=== PATIENT | male | born 1990 | race Caucasian/White ===

== ENCOUNTER 2019-03-20 15:59 | Emergency (ER) | payer OTHER ==
--- NOTE | 2019-03-20 16:24 | ED Physician Documentation ---
History of Present Illness - Stated complaint Stated Complaint: MHE - Chief complaint Chief Complaint: MHE - Additonal information Additional information: This is a 28-year-old male with a history of depression who presents due to SI. He states that he found out today that he is going to be dismissed from the [employer], and this caused him to be more depressed than usual, He drank a bottle of wine and had increased thoughts of harming himself. He did not have a plan, but states that after the drinking he began to be worried that his SI might worsen. He has had some thoughts of suicidality in the past, but he has never had a plan or had an attempt. He does not have access to firearms. He is currently on Zoloft for his depression. He drank a bottle of wine around 5 hours ago. No other drug use. Review of Systems Constitutional: denies: Fever Cardiac: denies: Chest pain / pressure Respiratory: denies: Dyspnea GI: denies: Abdominal Pain : denies: Dysuria Neurologic: denies: Generalized weakness Psychiatric: reports: Depressed PD PAST MEDICAL HISTORY - Past Medical History Psych: Depression - Present Medications Home Medications: Ambulatory Orders Medication Instructions Recorded Confirmed Sertraline [Zoloft] 50 mg PO DAILY 03/20/19 03/20/19 - Allergies Allergies/Adverse Reactions: Allergies Allergy/AdvReac Type Severity Reaction Status Date / Time No Known Drug Allergies Allergy Verified 03/20/19 16:08 - Living Situation Living Situation: reports: Other (At [facility]) - Social History ETOH Use: Wine PD ED PE NORMAL - Vitals Vital signs reviewed: Yes - General General: Alert and oriented X 3, No acute distress - HEENT HEENT: PERRL - Neck Neck: Supple, no meningeal sign - Cardiac Cardiac: RRR, No murmur - Respiratory Respiratory: Clear bilaterally - Abdomen Abdomen: Normal bowel sounds, Soft, Non tender, Non distended - Derm Derm: Warm and dry - Extremities Extremities: No deformity - Neuro Neuro: Alert and oriented X 3, Normal speech - Psych Psych: Other (Mildly depressed affect, cooperative, linear thought process, no signs hallucinations or delusions.) Results - Vitals Vitals: Vital Signs - 24 hr 03/20/19 03/20/19 03/20/19 16:04 17:10 19:26 Temperature 36.8 C 37.1 C 36.9 C Heart Rate 108 H 93 115 H Respiratory 18 12 16 Rate Blood Pressure 158/95 H 150/93 H 149/72 H O2 Saturation 96 97 98 03/20/19 21:11 Temperature 37.1 C Heart Rate 103 H Respiratory 16 Rate Blood Pressure 136/84 H O2 Saturation 97 Oxygen O2 Source Room air - Labs Labs: Laboratory Tests 03/20/19 03/20/19 03/20/19 16:35 16:35 16:35 WBC 6.8 RBC 4.84 Hgb 16.0 Hct 46.6 MCV 96.3 H MCH 33.1 H MCHC 34.3 RDW 10.6 L Plt Count 241 MPV 9.6 Neut # (Auto) 4.3 Lymph # (Auto) 2.1 [place] # (Auto) 0.4 Eos # (Auto) 0.0 Baso # (Auto) 0.0 Absolute Nucleated RBC 0.00 Nucleated RBC % 0.0 Sodium 144 Potassium 3.9 Chloride 105 Carbon Dioxide 26 Anion Gap 13.0 BUN 12 Creatinine 1.1 Estimated GFR (MDRD) 80 L Glucose 113 H Calcium 8.8 Total Bilirubin 0.6 AST 26 ALT 24 Alkaline Phosphatase 62 Total Protein 7.5 Albumin 4.4 Globulin 3.1 Albumin/Globulin Ratio 1.4 Lipase 25 TSH 2.23 Salicylates < 6.0 Acetaminophen < 10 L Ethyl Alcohol 281.6 PD MEDICAL DECISION MAKING - ED course Complexity details: considered differential (Suicidal ideation, depression, anger effect, thyroid disturbance) ED course: On arrival patient is somewhat emotional, but well-appearing overall. Labs are notable only for an elevated ethanol level at 281. He was endorsing intermittent thoughts of suicide ideation when he arrived, though he has no plan, no previous attempts, no access to firearms. Patient was observed as he metabolized the alcohol in the emergency department, on reassessment he is clinically sober and no longer suicidal. He is feeling much better, after he has spoken with his command and with his friend, they have a plan going forward regarding his issues with the [employer], and also [place], in the meantime he will be staying with his friend who can watch over him and command can check in on him as well. He does not have access to firearms and his friends state that they will make sure that the house is clear of them. Now that he is sober feeling much better and again denies any suicidality. I spoke with him regarding my concerns and he was able to contract for safety. I feel he is low risk as he has never had a suicide attempt in the past, his suicidality appears to be a function of his drinking, he is future oriented and has a plan to improve his situation, and he plans to avoid all alcohol going forward, he has a support network in place with his friends who are willing to hold onto this and also ensure that is safe and monitor him. He agrees to return to the emergency department or call for help if he has any increasing thoughts of self-harm, or any other concerning symptoms. Patient was discharged home in the care of his colleague/friend. Departure - Departure Disposition: 01 Home, Self Care Clinical Impression: Alcohol intoxication Qualifiers: Complication of substance-induced condition: with unspecified complication Qualified Code(s): F10.929 - Alcohol use, unspecified with intoxication, unspecified Depression Qualifiers: Depression Type: unspecified Qualified Code(s): F32.9 - Major depressive disorder, single episode, unspecified Condition: Good Instructions: Suicide Warning Signs Self, ED Alcohol Intoxication Comments: You were seen today because you had some thoughts of harming herself and were i ntoxicated with alcohol. Please avoid drinking as it worsens depression. I am glad that you are no longer feeling suicidal and feeling safe to go home, but know that if you have any recurrence of your feelings of harming herself or any other concerning symptoms you should call 911 or the suicide helpline , or return to the emergency department immediately. Follow-up with a psychiatrist as soon as possible as we discussed and as you are scheduled. Again, you are welcome back in the emergency room at any time if you are having worsening symptoms. Discharge Date/Time: 03/20/19 21:10
[2019-03-20 16:46] LABS: BASOPHILS % (AUTO) 0.3 %; EOSINOPHILS % (AUTO) 0.1 %; LYMPHOCYTES # (AUTO) 2.1 10^3/uL (1.5-3.5); LYMPHOCYTES % (AUTO) 31.3 %; MEAN CORPUSCULAR HEMOGLOBIN 33.1 pg (27.0-31.0); MEAN CORPUSCULAR HGB CONC 34.3 g/dL (32.0-36.0); MEAN CORPUSCULAR VOLUME 96.3 fL (80.0-94.0); MEAN PLATELET VOLUME 9.6 fL (7.4-11.4); MONOCYTES # (AUTO) 0.4 10^3/uL (0.0-1.0); MONOCYTES % (AUTO) 5.8 %; NEUTROPHILS # (AUTO) 4.3 10^3/uL (1.5-6.6); NEUTROPHILS % (AUTO) 62.2 %; PLT - PLATELET COUNT 241 10^3/uL (130-450); RED BLOOD COUNT 4.84 10^6/uL (4.70-6.10); RED CELL DISTRIBUTION WIDTH 10.6 % (12.0-15.0); WHITE BLOOD COUNT 6.8 x10^3/uL (4.8-10.8)
[2019-03-20 17:07] LABS: ACETAMINOPHEN < 10 ug/mL (10-30); ALBUMIN 4.4 g/dL (3.2-5.5); ALBUMIN/GLOBULIN RATIO 1.4 (1.0-2.2); ALKALINE PHOSPHATASE 62 IU/L (42-121); ALT ALANINE AMINOTRANSFERASE 24 IU/L (10-60); AST ASPARTATE AMINOTRANSFERASE 26 IU/L (10-42); BILIRUBIN,TOTAL 0.6 mg/dL (0.2-1.0); BUN - BLOOD UREA NITROGEN 12 mg/dL (6-20); CALCIUM 8.8 mg/dL (8.5-10.3); CARBON DIOXIDE - CO2 26 mmol/L (21-32); CHLORIDE 105 mmol/L (101-111); CREATININE 1.1 mg/dL (0.6-1.2); GFR - MDRD 80 (>89); GLUCOSE 113 mg/dL (70-100); LIPASE 25 U/L (22-51); SALICYLATE < 6.0 mg/dL; SODIUM 144 mmol/L (135-145); TOTAL PROTEIN 7.5 g/dL (6.7-8.2)
[2019-03-20 21:12] VITALS: BP 136/84
== END 2019-03-20 21:10 | disposition home or self-care (01) ==
LOC: ED 15:59
DX: F32.9 Major depressive disorder, single episode, unspecified (principal); R45.851 Suicidal ideations; F10.929 Alcohol use, unspecified with intoxication, unspecified; Y90.8 Blood alcohol level of 240 mg/100 ml or more
CPT/HCPCS: 36415; 80053; 80306; 80307; 80320; 80329; 81001; 81003; 83690; 84443; 85025; 87086; 99283; 99284